=== PATIENT | female | born 1975 | race African-American/Black ===

== ENCOUNTER 2020-12-16 12:24 | Emergency (ER) | payer MEDICAID ==
[~2020-12-16] VITALS: Ht 167.6 cm; Wt 86.2 kg
[2020-12-16 12:25] VITALS: BP_SYST 208
--- NOTE | 2020-12-16 12:41 | NUR ---
PENNY BACK TO BED #6 AND REPORT GIVEN TO GE
--- NOTE | 2020-12-16 13:03 | NUR ---
DR HIGGINS IN ROOM FOR EXAM
--- NOTE | 2020-12-16 13:12 | NUR ---
PT COMES TO ER BECAUSE SHE STATES " I FEEL LIKE MY BP IS HIGH" PT IS CURRENTLY ASYMPTOMATIC. DENIES HEADACHE, OR ANY CHNAGES IN VISION, DENIES CP OR SOB. SKIN W/D/I. RESP EVEN AND UNLABORED, ON RA @99%. BP 220/116, DR HIGGINS AWARE.
[2020-12-16] MEDS ORDERED: cloNIDine HCL 0.1 MG TABLET PO ONE (13:15)
[2020-12-16] MEDS ORDERED: LORazepam 1 MG TABLET PO ONE ×2 (13:15→15:30)
--- NOTE | 2020-12-16 15:06 | NUR ---
KUCH TRAY GIVEN, TOLERATING WELL.
[2020-12-16] MEDS ORDERED: hydrALAZINE HCL 25 MG TABLET PO ONE (15:30)
[2020-12-16] MEDS ORDERED: ISOSORBIDE DINITRATE 20 MG TABLET (ISORDIL) PO ONE (15:30)
--- NOTE | 2020-12-16 15:33 | NUR ---
I CALLED PHARM FOR ISORSIBIDE AND HYDRALZNE, BOTH THAT ARE NOT IN PYXIS.
--- NOTE | 2020-12-16 15:33 | NUR ---
MEDICATED ORDERED WITH ATIVAN, STATES HER BP IS GIVING HER CONT ANXIETY.
--- NOTE | 2020-12-16 16:33 | NUR ---
NO ACUTE CHANGES IN CONDITION, PT IN NAD. RESP EVEN AND UNLABORED. VSS.
[2020-12-16] MEDS ORDERED: FURO-149 PO (17:49)
[2020-12-16] MEDS ORDERED: CAT1PAT TD (17:49)
[2020-12-16] MEDS ORDERED: HYDR-4037 PO (17:49)
--- NOTE | 2020-12-16 18:24 | NUR ---
Patient given written and verbal discharge instructions and verbalizes understanding. ER MD discussed with patient the results and treatment provided. Patient in stable condition. ID arm band removed. IV catheter removed intact and dressing applied, no active bleeding. Rx of CLONIDINE,FUROSEMIDE, HYDRALAZINE given. Patient educated on pain management and to follow up with PMD. Pain Scale . Opportunity for questions provided and answered. Medication side effect fact sheet provided.
[2020-12-16 18:25] VITALS: BP_SYST 175
== END 2020-12-16 18:24 | disposition home or self-care (01) ==
LOC: SED 12:24
DX: I10 Essential (primary) hypertension (principal); Z76.0 Encounter for issue of repeat prescription; Z88.5 Allergy status to narcotic agent; Z79.899 Other long term (current) drug therapy
CPT/HCPCS: 99285